=== PATIENT | female | born 2000 | race Caucasian/White ===

== ENCOUNTER 2019-04-15 08:30 | Outpatient (CLI) | payer OTHER ==
[~2019-04-15] VITALS: Ht 170.2 cm; Wt 77.3 kg
[~2019-04-15 08:30] MED LIST: ESCI10TA55 PO; IRON18TA PO
== END 2019-04-15 08:53 | disposition home or self-care (01) ==
LOC: PREOP 08:30
PROVIDERS: ATTEND Obstetrics & Gynecology
DX: Z01.818 Encounter for other preprocedural examination (principal)

== ENCOUNTER 2019-04-19 05:55 | Day surgery (SDC) | payer OTHER ==
[2019-04-19] VITALS (8 sets, daily range): BP systolic 102–124; BP diastolic 67–96
[~2019-04-19] VITALS: Ht 170 cm; Wt 77.3 kg
[2019-04-19] MEDS: LACTATED RINGERS 1,000 ML IV PRN ×2 (06:25→09:13)
[2019-04-19] MEDS ORDERED: BUPIVACAINE 0.25% 30 ML (SENSORCAINE) VIAL ONE (07:10)
[2019-04-19] MEDS ORDERED: BUP/EPI 0.5% 1:200,000 (MARCAINE) 10ML VIAL IJ ONE (07:10)
--- NOTE | 2019-04-19 07:18 | Progress Note-Pre Operative ---
Pre-Operative Progress Note H&P Reviewed The H&P was reviewed, patient examined and no changes noted. Date Seen by Provider: Apr 19, 2019 Time Seen by Provider: 07:15 Date H&P Reviewed: Apr 19, 2019 Time H&P Reviewed: 07:15 Pre-Operative Diagnosis: Hymenal Lesion HILARIA MUÑOZ DO Apr 19, 2019 07:18 POS
[2019-04-19] MEDS ORDERED: D5 LR IV SOLUTION 1,000 ML IV SCH (07:29)
[2019-04-19] MEDS ORDERED: ONDANSETRON 4 MG/2 ML (SDV) Z0FRAN IVP PRN ×2 (07:30→09:30)
[2019-04-19] MEDS ORDERED: fentaNYL INJECTION 100 MCG/2 ML AMP ONE (07:30)
[2019-04-19] MEDS ORDERED: HYDROcodone/APAP 5 MG/325 MG (LORTAB) TAB PO PRN (07:30)
[2019-04-19] MEDS ORDERED: KETOROLAC 30 MG/ML VIAL IVP ONE ×2 (07:30→09:30)
[2019-04-19] MEDS ORDERED: HYDR-4226 PO (07:41)
[2019-04-19] MEDS ORDERED: ACHD5005 PO (07:41)
--- NOTE | 2019-04-19 07:43 | Discharge Inst-Women's Service ---
Discharge Inst-Women's Serv Depart Medication/Instructions New, Converted or Re-Newed RX: RX on Chart Problems Reviewed?: Yes Consults/Follow Up Additional Follow Up: Yes Orders/Referrals Dr. Muñoz in 6 weeks Activity Activity: Activity as Tolerated Driving Instructions: No Driving for 1 Week NO SMOKING: NO SMOKING Nothing Inside Vagina: No Douching, No [place], No Tampons Diet Discharge Diet: No Restrictions Symptoms to Report to : Bleeding Excessive, Pain Increased, Fever Over 101 Degrees F, Vaginal Bleeding Increase, Questions/Concerns For Any Problems or Questions: Contact Your Physician HILARIA MUÑOZ DO Apr 19, 2019 07:43 POS
[2019-04-19] MEDS ORDERED: MIDAZOLAM 2 MG/2 ML (VERSED) VIAL ONE (08:34)
[2019-04-19] MEDS ORDERED: DEXAMETHASONE 10 MG/ML (DECADRON) 1 ML VIAL ONE (08:35)
[2019-04-19] MEDS ORDERED: ONDANSETRON 4 MG/2 ML (SDV) Z0FRAN ONE (08:35)
[2019-04-19] MEDS ORDERED: SEVOFLURANE (ULTANE) 15 ML INHAL SOLN ONE (09:28)
[2019-04-19] MEDS ORDERED: MEPERIDINE (DEMEROL) INJ 50 MG/ML IVP ONE (09:30)
[2019-04-19] MEDS ORDERED: fentaNYL INJECTION 100 MCG/2 ML AMP IVP ONE (09:30)
--- NOTE | 2019-04-19 12:03 | Anesthesia-General Post-Op ---
General Patient Condition Mental Status/LOC: Same as Preop Cardiovascular: Satisfactory Nausea/Vomiting: Absent Respiratory: Satisfactory Pain: Controlled Complications: Absent Post Op Complications Complications None Follow Up Care/Instructions Patient Instructions None needed. Anesthesia/Patient Condition Patient Condition Patient is doing well, no complaints, stable vital signs, no apparent adverse anesthesia problems. No complications reported per nursing. JAZ HOYT CRNA Apr 19, 2019 12:03 POS
--- NOTE | 2019-04-19 13:30 | OPERATIVE REPORT ---
DATE OF SERVICE: 04/19/2019 PREOPERATIVE DIAGNOSES: 1. A 19-year-old female with postcoital bleeding. 2. Hymenal lesion. POSTOPERATIVE DIAGNOSES: 1. A 19-year-old female with postcoital bleeding. 2. Hymenal lesion. PROCEDURE: Excision of the hymenal lesion. SURGEON: Hilaria Muñoz DO ANESTHESIA: LMA. ESTIMATED BLOOD LOSS: Minimal. URINE OUTPUT: 100 mL of clear drained at the end of the procedure. FLUIDS: 1000 mL of lactated Ringer's solution. FINDINGS: A reddened area of the introitus approximately 2 o'clock position on the vaginal hymen consistent with possible chronic granulation tissue versus chronically inflamed skene's duct cyst. SPECIMEN SENT: Excised hymenal tissue. INDICATION FOR PROCEDURE: This is a 19-year-old female, who is a patient, who has consulted me from the [facility]. Upon evaluation, she was found to have the described findings above. I discussed with the patient conservative management, repeat antibiotic treatment with the patient already undergoing antibiotic treatment and wished to proceed with more definitive measures as none of us could really tell her what it was until we had actually excised the tissue and had pathologic diagnosis. Risks of the procedure were discussed with the patient in detail after all of her questions were answered, consent was obtained, the patient was taken to the operating room. OPERATIVE REPORT IN DETAIL: Once in the operating room, anesthesia was found to be adequate, she was placed in dorsal lithotomy position, prepped and draped in normal sterile fashion. Timeout was performed. I then am able to identify the previously mentioned tissue, which was grasped with Allis clamp. The submucosa of this area is infiltrated using 0.5% Marcaine with epinephrine. I then made an elliptical incision around the defined area and then I am able to excise it using Metzenbaum scissors. It is sent as excised hymenal tissue. The defect was then reapproximated using 3-0 Vicryl Rapide suture in a running locking fashion, after which there was no active bleeding noted from any of my dissection planes. The patient tolerated the procedure well and sent to recovery in stable condition. Lap and sponge counts were correct at the end of the procedure. Instrument count was correct as well. Job ID: [id number] DocumentID: [id number] Dictated Date: 04/19/2019 09:46:58 Body Bumper Date: 04/19/2019 13:29:47 Dictated By: HILARIA MUÑOZ DO
== END 2019-04-19 10:45 | disposition home or self-care (01) ==
LOC: SDC 05:55
PROVIDERS: ATTEND Obstetrics & Gynecology
DX: N93.0 Postcoital and contact bleeding (principal); N89.8 Other specified noninflammatory disorders of vagina; Z90.89 Acquired absence of other organs; Z79.899 Other long term (current) drug therapy; Z79.891 Long term (current) use of opiate analgesic; Z80.3 Family history of malignant neoplasm of breast
CPT/HCPCS: 84703; 86850; 86900; 86901; 87081; 88305

== ENCOUNTER 2021-09-23 02:11 | Emergency (ER) | payer SELFPAY ==
[~2021-09-23] VITALS: Ht 170 cm; Wt 81.0 kg
[~2021-09-23 02:11] MED LIST changes: +ACHD5005 PO; +ESCI-2 PO; -ESCI10TA55 PO; +HYDR-4226 PO
[2021-09-23] MEDS ORDERED: FLUORESCEIN (FLUOR-I-STRIPS) 1 MG STRP OU ONE (02:30)
[2021-09-23] MEDS ORDERED: BSS 15 ML IR ONE (02:30)
[2021-09-23] MEDS ORDERED: TETRACAINE 0.5% OPHTH SOLN 4 ML BTL (SINGLE DOSE ONLY) OU ONE (02:30)
[2021-09-23] MEDS ORDERED: ERYTHROMYCIN OPHTH OINT 1 GM (SINGLE USE) TUBE ONE (03:07)
--- NOTE | 2021-09-23 03:08 | ED EENT ---
History of Present Illness General Chief Complaint: Eye Problems Stated Complaint: NAIL GLUE R EYE,R EYE BURNING,ADHESIVE ON EYELID Nursing Triage Note: patient put nail glue instead of eye drops in her eyes. patient states she washed out her eye and used moist towel Source: patient History of Present Illness Date Seen by Provider: Sep 23, 2021 Time Seen by Provider: 02:15 Initial Comments PT ARRIVES VIA POV FROM HOME STATES AROUND 0200, SHE ACCIDENTALLY PUT FINGERNAIL "SUPERGLUE" IN HER EYE INSTEAD OF EYE DROPS STATES SHE WAS SEEN AT "[facility] IN [place] OVER A WEEK AGO FOR RIGHT EYE INFLAMMATION--STATES IT WAS GETTING BETTER --ANTIBIOTIC DROPS AND STEROID DROPS WERE PRESCRIBED PT WAS NOT WEARING HER CONTACTS AT THE TIME FLUSHED HER EYE WITH WATER MULTIPLE TIMES AND RUBBED WITH A TOWEL TO TRY TO REMOVE THE GLUE Allergies and Home Medications Allergies Coded Allergies: No Known Drug Allergies (Unverified , 04/15/19) Patient Home Medication List Home Medication List Reviewed: Yes Escitalopram Oxalate (Escitalopram Oxalate) 10 Mg Tablet, 10 MG PO DAILY, (Reported) Entered as Reported by: MANN PALOMARES on 04/15/19826 Hydrocodone Bit/Acetaminophen (Lortab 5 Mg Tablet) 1 Tab Tab, 1 TAB PO Q4H PRN for PAIN-MODERATE (5-7) Prescribed by: HILARIA MUÑOZ on 04/19/19 0741 Hydrocodone/Acetaminophen (Hydrocodone/Acetaminophen 5 MG/325 MG TAB) 1 Each Tablet, 1 TAB PO Q4-6HR Prescribed by: HILARIA MUÑOZ on 04/19/19 0741 Hydrocodone/Acetaminophen (Hydrocodone-Acetamin 5-325 mg) 5 Mg-325 Mg Tablet, 1 EACH PO Q4-6 HOURS PRN for PAIN Prescribed by: TORSTEN CASON on 09/23/21 0310 Ibuprofen (Ibuprofen) 800 Mg Tablet, 800 MG PO Q6H PRN for PAIN-MILD Prescribed by: TORSTEN CASON on 09/23/21 0309 Iron (Iron) Unknown Strength Tablet, 10 MG PO DAILY, (Reported) Entered as Reported by: MANN PALOMARES on 04/15/19 08 Review of Systems Review of Systems Constitutional: no symptoms reported Eyes: See HPI Past Glkexzk-Aokhal-Nftxxt Hx Patient Social History Tobacco Use?: No Use of E-Cig and/or Vaping dev: No Substance use?: No Alcohol Use?: No Pt feels they are or have been: No Immunizations Up To Date First/Initial COVID19 Vaccinat: yes Second COVID19 Vaccination Jose Carlos: yes Seasonal Allergies Seasonal Allergies: No Past Medical History Surgeries: Yes (wisdom teeth) Tonsillectomy Respiratory: No Currently Using CPAP: No Currently Using BIPAP: No Cardiac: No Neurological: No Genitourinary: No Gastrointestinal: No Musculoskeletal: No Endocrine: No HEENT: No Cancer: No Psychosocial: No Integumentary: No Blood Disorders: No Physical Exam Vital Signs Vital Signs - First Documented 09/23/21 02:27 Temp 37.0 Pulse 129 Resp 20 B/P (MAP) 134/99 (111) Pulse Ox 97 O2 Delivery Room Air Height, Weight, BMI Height: '" Weight: lbs. oz. kg; 28.00 BMI Method: General Appearance: other (PT COMPLETELY HYSTERICAL--CRYING UNCONTROLLABLY AND WAILING ON ARRIVAL. ) Eyes: right eye other (RIGHT CONJUNCTIVA VERY INFLAMED. EYELIDS ARE NOT GLUED TOGETHER BUT HAS A LARGE AMOUNT OF NAIL GLUE ADHERED TO BOTH UPPER AND LOWER LASHES AND LASH LINE. NO VISIBLE GLUE IS STILL PRESENT IN THE EYE ITSELF. ); left eye normal inspection Procedures/Interventions Eye : Location: right eye Eye FB Removal: removal w/ cotton swab, other Anesthesia (gtts): Tetracaine Progress/Procedure Conclusion RIGHT EYE INSTILLED WITH TETRACAINE AND FLUORESCEIN STAIN APPLIED LARGE AREA OF DYE UPTAKE TO CORNEA AND ADJACENT CONJUNCTIVA NO FOREIGN BODY IN EYE ITSELF UPPER AND LOWER LIDS/LASHES AND LASH LINE WITH LARGE AMOUNT OF DRIED GLUE ADHERED AND DOES COME IN CONTACT WITH EYE, WITH BLINKING. VASELINE PLACED IN LASH LINE TO ASSIST WITH LOOSENING GLUE ALL VISIBLE GLUE REMOVED WITH STERILE Q-TIPS AND FINE-TIP FORCEPS, WITH TINY SPOT OF RESIDUAL IN UPPER LASH--LESS THAN 2 MM SPOT--AND IS AWAY FROM LID AND DOES NOT COME IN CONTACT WITH EYE ITSELF AND IS NOT CAUSING PT DISCOMFORT. ERYTHROMYCIN OINTMENT INSTILLED IN EYE 50 MINUTES SPENT IN REMOVING FOREIGN MATERIAL Progress/Results/Core Measures Results/Orders My Orders Orders - TORSTEN CASON DO Tetracaine 0.5% Ophth Scarlett Sdv (Tetracai (09/23/21 02:30) Fluorescein Strips (Sxehu-Q-Hghdzg) (09/23/21 02:30) Balanced Salt Irrigation Soln (Bss Irrig (09/23/21 02:30) Erythromycin Ophth Oint (Erythromycin Op (09/23/21 06:00) Rx-Hydrocodone/Apap 5-325 Mg (Rx-Vicodin (09/23/21 03:15) Ibuprofen Tablet (Motrin Tablet) (09/23/21 03:15) Erythromycin Ophth Oint (Erythromycin Op (09/23/21 03:07) Medications Given in ED Current Medications Medications Dose Ordered Sig/Evin Route Start Time Stop Time Status Last Admin Dose Admin Balanced Salt Solution 15 ml ONCE ONCE IR 09/23/21 02:30 09/23/21 02:31 DC 09/23/21 02:35 15 ML Fluorescein Sodium 1 mg ONCE ONCE OU 09/23/21 02:30 09/23/21 02:31 DC 09/23/21 02:35 1 MG Tetracaine HCl 4 ml ONCE ONCE OU 09/23/21 02:30 09/23/21 02:31 DC 09/23/21 02:35 4 ML Vital Signs/I&O 09/23/21 02:27 Temp 37.0 Pulse 129 Resp 20 B/P (MAP) 134/99 (111) Pulse Ox 97 O2 Delivery Room Air Blood Pressure Mean: 111 Departure Impression Primary Impression: Corneal abrasion Additional Impressions: Foreign body in conjunctival sac Foreign body of cornea super glue in right eye Chemical injury of eye Disposition: 01 HOME, SELF-CARE Condition: Improved Departure-Patient Inst. Decision time for Depature: 03:06 Referrals: JAIDEN BARRIENTOS OD NO,LOCAL PHYSICIAN (PCP) Primary Care Physician Patient Instructions: Corneal Abrasion (DC), Foreign Body in Eye (DC), How to Use Eye Ointment, Chemical Eye Injury (DC) Add. Discharge Instructions: COOL COMPRESSES TO RIGHT EYE AT 20 MINUTE INTERVALS DO NOT RUB EYE USE ANTIBIOTIC EYE DROPS EVERY 2 HOURS DO NOT WEAR CONTACTS NO DRIVING FOLLOW UP WITH YOUR EYE DR TOMORROW OR YOU MAY CALL DR. BARRIENTOS'S OFFICE IN THE MORNING FOR FOLLOW UP CARE--CALL FIRST THING IN THE MORNING TO SCHEDULE APPOINTMENT All discharge instructions reviewed with patient and/or family. Voiced understanding. Scripts Ibuprofen (Ibuprofen) 800 Mg Tablet 800 MG PO Q6H PRN for PAIN-MILD, #20 TAB Prov: TORSTEN CASON DO 09/23/21 Hydrocodone/Acetaminophen (Hydrocodone-Acetamin 5-325 mg) 5 Mg-325 Mg Tablet 1 EACH PO Q4-6 HOURS PRN for PAIN, #10 TAB Prov: TORSTEN CASON DO 09/23/21 Work/School Note: Work Release Form Date Seen in the Emergency Department: Sep 23, 2021 Restrictions: Need Release from Doctor TORSTEN CASON DO Sep 23, 2021 03:08
[2021-09-23] MEDS ORDERED: IBUP-1780 PO (03:09)
[2021-09-23] MEDS ORDERED: ACHD5005 PO (03:09)
[2021-09-23] MEDS ORDERED: IBUPROFEN 800 MG (MOTRIN) TAB PO ONE (03:15)
[2021-09-23 03:20] VITALS: BP 134/99
[2021-09-23] MEDS ORDERED: ERYTHROMYCIN OPHTH OINT 1 GM (SINGLE USE) TUBE OP SCH (06:00)
== END 2021-09-23 03:50 | disposition home or self-care (01) ==
LOC: EDUNIT# 02:11 → ER 02:13
DX: T26.91XA Corrosion of right eye and adnexa, part unspecified, initial encounter (principal); T15.11XA Foreign body in conjunctival sac, right eye, initial encounter; T15.01XA Foreign body in cornea, right eye, initial encounter; Z77.098 Contact with and (suspected) exposure to other hazardous, chiefly nonmedicinal, chemicals
CPT/HCPCS: 65222